=== PATIENT | male | born 1990 | race Caucasian/White ===

== ENCOUNTER 2022-07-03 11:18 | Emergency (ER) | payer OTHER | END 2022-07-03 11:50 | disposition home or self-care (01) | LOC: VM.ED 11:18 | DX: K02.9 Dental caries, unspecified (principal); Z91.048 Other nonmedicinal substance allergy status; Z72.0 Tobacco use | CPT/HCPCS: 99282 ==

== ENCOUNTER 2024-10-12 10:48 | Emergency (ER) | payer OTHER ==
[2024-10-12] MEDS ORDERED: Bupivacaine 0.5% 30 ML SDV INJECT PRN (11:26)
[2024-10-12] MEDS: Diphtheria,Pertussis(Acell),Tetanus Vaccine 0.5 ML Syringe IM ONE (11:56)
== END 2024-10-12 12:04 | disposition home or self-care (01) ==
LOC: VM.ED 10:48
DX: S61.211A Laceration without foreign body of left index finger without damage to nail, initial encounter (principal); Z23 Encounter for immunization; Z91.048 Other nonmedicinal substance allergy status; Z79.899 Other long term (current) drug therapy; W22.8XXA Striking against or struck by other objects, initial encounter
CPT/HCPCS: 12001; 73140-F1; 90471; 90715; 99283; 99283-25